=== PATIENT | female | born 1940 | race Caucasian/White ===

== ENCOUNTER 2022-06-07 11:23 | Inpatient (IN) | payer MEDICARE, BC ==
[~2022-06-07] VITALS: Ht 160 cm; Wt 58.5 kg
--- NOTE | 2022-06-07 12:15 | NUR ---
bib facility staff for unsteady balance, dizziness x 2 weeks.headache today. PLACED IN BED, AAOX4, BREATHING UNLABORED SATURATING AT 96%RA
[2022-06-07] MEDS ORDERED: IV NS 0.9% 1,000 ML BAG IV ONE (12:30)
--- NOTE | 2022-06-07 12:45 | NUR ---
OTTER TRAWLER [place] AT BEDSIDE
--- NOTE | 2022-06-07 12:45 | NUR ---
MOVE SHEET SUBMITTED.
[2022-06-07 13:05] LABS: BASOPHILS % (AUTO) 0.8 % (0.0-2.0); EOSINOPHILS % (AUTO) 1.8 % (0.0-6.0); HEMATOCRIT 42 % (33-45); HEMOGLOBIN 13.5 g/dL (11.5-14.8); LYMPHOCYTES # (AUTO) 1.4 K/uL (0.8-4.8); LYMPHOCYTES % (AUTO) 24.3 % (20.0-44.0); MEAN CORPUSCULAR HGB CONC 32 g/dl (31.0-36.0); MEAN CORPUSCULAR VOLUME 100 fL (82-100); MONOCYTES # (AUTO) 0.7 K/uL (0.1-1.30); MONOCYTES % (AUTO) 11.8 % (2.0-12.0); NEUTROPHILS # (AUTO) 3.6 K/uL (1.8-8.9); NEUTROPHILS % (AUTO) 61.3 % (43.0-81.0); PLATELET COUNT (AUTO) 204 K/uL (150-450); RED BLOOD CELL COUNT(AUTO) 4.21 MIL/uL (4.0-5.2); WHITE BLOOD COUNT (AUTO) 5.8 K/uL (4.3-11.0)
[2022-06-07 13:15] LABS: CALCIUM, SERUM 9.2 mg/dL (8.5-10.1); CARBON DIOXIDE 29 mmol/L (21-32); CHLORIDE 105 mmol/L (98-107); CREATININE 1.4 mg/dL (0.6-1.3); GLUCOSE 93 mg/dL (74-106); POTASSIUM 4.8 mmol/L (3.5-5.1); SODIUM SERUM 139 mmol/L (136-145); UREA NITROGEN, BLOOD 19 mg/dL (7-18)
[2022-06-07 13:26] LABS: ACETAMINOPHEN < 10 ug/ml (10-30); ALANINE AMINOTRANSFERASE 11 U/L (12-78); ALBUMIN 3.7 g/dL (3.4-5.0); ALCOHOL, BLOOD < 3 mg/dL (0-0); ALKALINE PHOSPHATASE 87 U/L (46-116); ASPARTATE AMINOTRANSFERASE 26 U/L (15-37); BILIRUBIN,DIRECT 0.1 mg/dL (0.0-0.2); BILIRUBIN,TOTAL 0.5 mg/dL (0.2-1.0); TOTAL PROTEIN, SERUM 7.1 g/dL (6.4-8.2)
[2022-06-07 13:37] LABS: SERUM AMMONIA 1 umol/L (11-32)
--- NOTE | 2022-06-07 14:15 | NUR ---
URINE SAMPLE SENT TO LAB
--- NOTE | 2022-06-07 15:32 | NUR ---
[facility] CALLED RADIAL DRILL PRESS SET UP OPERATOR PAGED.
[2022-06-07 15:34] LABS: BILIRUBIN,URINE NEGATIVE (NEGATIVE); COLOR,URINE YELLOW (YELLOW); LEUKOCYTE ESTERASE ,URINE TRACE (NEGATIVE); NITRITE, URINE NEGATIVE (NEGATIVE); PROTEIN,URINE NEGATIVE (NEGATIVE); UGLUCOSE NEGATIVE (NEGATIVE); UROBILINOGEN,URINE 0.2 EU/dL (0.2)
[2022-06-07 15:43] LABS: BACTERIA,URINE RARE /HPF (None Seen); RBC,URINE 0-2 /HPF (0-2)
[2022-06-07] MEDS ORDERED: ONDANSETRON HCL/PF 4 MG/2 ML VIAL IVP PRN (18:30)
[2022-06-07] MEDS ORDERED: ZOLPIDEM TARTRATE 5 MG TABLET PO PRN (18:30)
[2022-06-07] MEDS ORDERED: MAG HYDROX/AL HYDROX/SIMETH 30 ML UDC PO PRN (18:30)
[2022-06-07] MEDS ORDERED: IV 1/2NS 1000 ML 1,000 ML IV PRN (18:30)
[2022-06-07] MEDS ORDERED: Z GUARD REMEDY 4 OZ OINT TP PRN (18:30)
[2022-06-07] MEDS ORDERED: MAGNESIUM HYDROXIDE 30 ML UDC PO PRN (18:30)
--- NOTE | 2022-06-07 19:41 | NUR ---
room 322-1
--- NOTE | 2022-06-07 19:56 | NUR ---
Ami gold in [facility] - 06/07/22 at 2002 by ADELAIDE 112-1
--- NOTE | 2022-06-07 20:13 | NUR ---
REPORT GIVEN TO HAL RN ROOM 322-1 FOR ROSALIND
[2022-06-07 21:00] VITALS: BP 115/67
--- NOTE | 2022-06-07 21:00 | NUR ---
MS STRATEGIC BUYER NOTES: RECEIVED PATIENT FROM ER VIA DU ON STABLE CONDITION, PLACED IN BED COMFORTABLY, BED IN LOW POSITION CALL LIGHTS WITHIN REACH, ORIENTED TO ROOM, PATIENT REFUSED SKIN ASSESSMENT, INVENTORIES DONE AND DOCUMENTED AND SIGNED, PATIENT IS A/OX4 ABLE TO EXPRESS NEEDS, AMBULATORY TO BED SIDE COMMODE, WITH SUPERVISION, ER HANDED CONTACT NUMBER OF FACILITY WERE PATIENT CAME FROM [facility] [phone], CALLED AND LEAVE MESSAGE FOR HER MEDICATION COPY AWAITING FOR REPLY, DUE MEDICATION WAS GIVEN, PATIENT KEPT CLEAN AND DRY ALL NEEDS MET WILL CONTINUE TO MONITOR,
[2022-06-07] MEDS: ACETAMINOPHEN 325 MG TABLET PO PRN (22:29)
--- NOTE | 2022-06-07 23:00 | NUR ---
RN NOTES: PATIENT REFUSED IV LINE INFUSION EXPLAIN RISK AND BENEFITS, BUT PATIENT STILL REFUSED WILL CONTINUE TO MONITOR.
--- NOTE | 2022-06-08 00:43 | NUR ---
RN NOTES: NOTIFY DR MURILLO ABOUT PATIENT REQUEST OF 5 MG OF AMBIEN PATIENT ALREADY TOOK 5 MG AT 2229 SHE SAID SHES TAKING 10 MG AT HOME NO MEDICATION LIST TO RECONCILE PATIENT PREVIOUS FACILITY CONTACTED TO REQUEST MED LIST WAS NOT REPLYING, PER DR MURILLO OK TO GIVE ANOTHER 5 NOTED AND CARRY OUT.
[2022-06-08] MEDS: ACETAMINOPHEN 325 MG TABLET PO PRN (06:34)
--- NOTE | 2022-06-08 06:54 | NUR ---
MS RN CLOSING NOTES: PATIENT AWAKE IN BED, BED IN LOW POSITION CALL LIGHTS WITHIN REACH, NO COMPLAIN OF PAIN AND DISCOMFORT AT THIS TIME, ON ROOM AIR SATURATING WELL, PATIENT IS A/OX4 ABLE TO EXPRESS NEEDS, AMBULATORY BED TO BED SIDE COMMODE WITH ASSISTANCE, IV LINE AT [id number] WITH ONGOING 1/2 NSS@75ML/HR INFUSING WELL, PATIENT KEPT CLEAN AND DRY ALL NEEDS MET ENDORSE TO INCOMING SHIFT.
[2022-06-08 07:00] VITALS: BP 141/55
[2022-06-08] MEDS ORDERED: PANTOPRAZOLE 40 MG TABLET.DR PO SCH (07:30)
--- NOTE | 2022-06-08 07:32 | NUR ---
MS RN OPENING NOTES: RECEIVED PATIENT AWAKE A/OX4, ABLE TO MAKE NEEDS KNOWN. ON RA WITH NO S/S OF SOB, DENIES PAIN AT THIS TIME. PT IS AMBULATORY USES BED SIDE COMMODE AND TOILET WITH STANDY ASSISTANCE. IV LINE AT L AC#20, PATENT AND INTACT, 1/2 NS@75ML/HR ON PAUSE PER PT REQUEST. ALL SAFETY MEASURES IN PLACE, CALL LIGHT AND TABLE WITHIN EASY REACH, WILL CONT WITH PLAN OF CARE DURING SHIFT.
--- NOTE | 2022-06-08 08:57 | NUR ---
RN NOTES: ADELITA FROM [facility] CALLED RN, STATES WILL SEND PT'S MED LIST ELECTRONICALLY [place]. PT REFUSED AM LABS, STATES SHE DOESN'T NEEDS IT AND SAID "NOTHING IS WRONG WITH ME". PT REFUSED IV FLUIDS, STATES " I'M DRINKING A LOT OF WATER", REMINDED PT OF RATIONALE FOR IV FLUID HYDRATION AND LABS, PT VERBALIZED UNDERSTANDING BUT STILL REFUSED.
[2022-06-08] MEDS ORDERED: QUET25TA PO (09:10)
[2022-06-08] MEDS ORDERED: ATOR10TA PO (09:10)
[2022-06-08] MEDS ORDERED: CLON0.1T PO (09:10)
[2022-06-08] MEDS ORDERED: ROPI0.255 PO (09:10)
[2022-06-08] MEDS ORDERED: BUPR-319 PO (09:10)
[2022-06-08] MEDS ORDERED: GABA300C PO (09:10)
[2022-06-08] MEDS ORDERED: METO25TA4 PO (09:10)
[2022-06-08] MEDS ORDERED: ONDA-97 PO (09:10)
[2022-06-08] MEDS ORDERED: ZOLP10TA2 PO (09:10)
[2022-06-08] MEDS ORDERED: LAMO200T10 PO (09:10)
[2022-06-08] MEDS ORDERED: OMEP20CA15 PO (09:10)
--- NOTE | 2022-06-08 09:45 | NUR ---
RN NOTES: PT REQUESTED SOMETHING FOR CONSTIPATION, WILL ADMINISTER CONSTIPATION MED ORDERED
--- NOTE | 2022-06-08 13:00 | NUR ---
DC NOTES: PT STABLE FOR DC PER MD. VITALS WNL, NO S/S OF ACUTE DISTRESS AND SOB ON RA. A/O X4, ABLE TO MAKE NEEDS KNOWN. DC INSTRUCTIONS, BELONGINGS CHECKLIST AND MED RECORDS DISCUSSED WITH PATIENT, VERBALIZED UNDERSTANDING TO ALL TEACHING; SIGNED DOCS. IV ACCESS AND ID BAND REMOVED, RN ESCORTED PT TO LOBBY VIA WHEELCHAIR, LEFT VIA PRIVATE CAR FROM [facility], LABORATORY MECHANIC HELPER IS DON.
[2022-06-08] MEDS ORDERED: ZOLPIDEM TARTRATE 5 MG TABLET PO ONE (22:00)
== END 2022-06-08 12:45 | DRG 640 ==
LOC: ER 11:31 → TELE 20:28 → MED 06-08
PROVIDERS: ADMIT Student in an Organized Health Care Education/Training Program; ATTEND Student in an Organized Health Care Education/Training Program
DX: E86.0 Dehydration (principal); N17.0 Acute kidney failure with tubular necrosis; R26.89 Other abnormalities of gait and mobility; F10.20 Alcohol dependence, uncomplicated; Z20.822 Contact with and (suspected) exposure to COVID-19; Y90.0 Blood alcohol level of less than 20 mg/100 ml; R29.6 Repeated falls; F32.A Depression, unspecified; I10 Essential (primary) hypertension; W18.30XA Fall on same level, unspecified, initial encounter; Y92.9 Unspecified place or not applicable; R79.89 Other specified abnormal findings of blood chemistry
CPT/HCPCS: 36415; 70450-TC; 71045-TC; 80048-TC; 80076-TC; 81001; 82140-TC; 84484-TC; 85025-TC; 85730-TC; 87081-TC; 97116-TC; 97530-TC; C9803; G0378; G0480; J3490; J7030